=== PATIENT | male | born 1990 | race Asian ===

== ENCOUNTER 2017-10-11 02:01 | Emergency (ER) | payer OTHER ==
[2017-10-11] MEDS ORDERED: Ondansetron INJ* 2 MG/ML VIAL IV ONE (02:14)
[2017-10-11] MEDS ORDERED: Ketorolac INJ* 30 MG/ML 1 ML VIAL IV PUSH ONE (02:14)
[2017-10-11] MEDS ORDERED: NS 0.9% 1000 ML* 1,000 ML IV ONE (02:22)
[2017-10-11 03:46] LABS: ABS Basophils 0 10^3/ul (0-0.2); ABS Eosinophils 0 10^3/ul (0-0.6); ABS Lymphocytes 0.4 10^3/ul (1.0-4.8); ABS Monocytes 0.6 10^3/ul (0-0.8); ABS Neutrophils 7.5 10^3/ul (1.5-7.7); ABS Nucleated RBC 0 10^3/ul; Eosinophil % 0.1 % (0-6); Hematocrit 49 % (42-52); Hemoglobin 16.6 g/dl (14.0-18.0); Lymphocyte % 5.2 % (25-47); Mean Corpuscular HGB Conc 34 g/dl (31-36); Mean Corpuscular Hemoglobin 31 pg (27-31); Mean Corpuscular Volume 89 fL (80-94); Mean Platelet Volume 10 um3 (7.4-10.4); Nucleated Red Blood Cells % 0; Platelet Count 139 10^3/ul (150-450); Red Blood Count 5.43 10^6/ul (4.0-5.4); Red Cell Distribution Width 13 % (10.5-15); White Blood Count 8.6 10^3/ul (3.5-10.8)
[2017-10-11 03:59] LABS: EGFR Non-African American 99.4 (>60)
--- NOTE | 2017-10-11 04:28 | ED ---
Dwight Santana Jennifer, scribed for Go Geronimo MD on 10/11/17 at 0258 . Abdominal Pain/Male - HPI Summary HPI Summary: The patient is a 27 year old male who presents with central abdominal pain since yesterday morning. He reports he has had watery diarrhea four times today , but denies blood in the stool. He complains of nausea. 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 He denies previous abdominal surgeries, vomiting, fevers, chest pain, shortness of breath, sore throat, flu-like symptoms, urination problems, and upper respiratory problems. - History of Current Complaint Chief Complaint: EDAbdPain Stated Complaint: ABD PAIN Time Seen by Provider: 10/11/17 02:13 Hx Obtained From: Patient Onset/Duration: Sudden Onset, Lasting Days - began yesterday morning, Still Present Timing: Constant Severity Initially: Moderate Severity Currently: Moderate Pain Intensity: 4 Pain Scale Used: 0-10 Numeric Location: Diffuse Radiates: No Aggravating Factor(s): Nothing Alleviating Factor(s): Nothing Associated Signs And Symptoms: Positive: Other - diarrhea, nausea. NEGATIVEL vomiting, fevers, chest pain, shortness of breath, sore throat, flu-like symptoms, urination problems, upper respiratory problems. - Allergies/Home Medications Allergies/Adverse Reactions: Allergies Allergy/AdvReac Type Severity Reaction Status Date / Time No Known Allergies Allergy Verified 12/11/15 08:06 PMH/Surg Hx/FS Hx/Imm Hx Endocrine/Hematology History: Denies: Hx Diabetes Cardiovascular History: Denies: Hx Hypertension GI History: Denies: Hx Crohn's Disease Infectious Disease History: No Infectious Disease History: Denies: Traveled Outside the [place] in Last 30 Days - Family History Known Family History: Positive: None Negative: Other - Chron's, Colitis - Social History Occupation: Student - Veterinary Student Alcohol Use: Occasionally Substance Use Type: Reports: None Smoking Status (MU): Never Smoked Tobacco Have You Smoked in the Last Year: No Review of Systems Negative: Fever, Other - Flu symptoms Negative: Sore Throat Negative: Chest Pain Negative: Shortness Of Breath, Other - Upper respiratory problems Positive: Abdominal Pain, Diarrhea, Nausea. Negative: Vomiting Genitourinary: Negative - Urination problems All Other Systems Reviewed And Are Negative: Yes Physical Exam - Summary Physical Exam Summary: Appearance: Well appearing, no pain distress Skin: warm, dry, reflects adequate perfusion Head/face: normal Eyes: EOMI, SURAJ ENT: normal Neck: supple, non-tender Respiratory: CTA, breath sounds present Cardiovascular: slight tachycardia. Regular rhythm. pulses symmetrical Abdomen: non-tender, soft Bowel: present Musculoskeletal: normal, strength/ROM intact Neuro: normal, sensory motor intact, A&Ox3 Triage Information Reviewed: Yes Vital Signs On Initial Exam: Initial Vitals Temp Pulse Resp BP Pulse Ox 100.3 F 110 16 114/68 97 10/11/17 02:08 10/11/17 02:08 10/11/17 02:08 10/11/17 02:08 10/11/17 02:08 Vital Signs Reviewed: Yes Diagnostics - Vital Signs Vital Signs Temp Pulse Resp BP Pulse Ox 10/11/17 02:08 100.3 F 110 16 114/68 97 - Laboratory Lab Results: Lab Results 10/11/17 10/11/17 10/11/17 Range/Units 03:00 03:00 03:00 WBC 8.6 (3.5-10.8) 10^3/ul RBC 5.43 H (4.0-5.4) 10^6/ul Hgb 16.6 (14.0-18.0) g/dl Hct 49 (42-52) % MCV 89 (80-94) fL MCH 31 (27-31) pg MCHC 34 (31-36) g/dl RDW 13 (10.5-15) % Plt Count 139 L (150-450) 10^3/ul MPV 10 (7.4-10.4) um3 Neut % (Auto) 87.5 H (38-83) % Lymph % (Auto) 5.2 L (25-47) % Navarro % (Auto) 7.0 (1-9) % Eos % (Auto) 0.1 (0-6) % Baso % (Auto) 0.2 (0-2) % Absolute Neuts (auto) 7.5 (1.5-7.7) 10^3/ul Absolute Lymphs (auto) 0.4 L (1.0-4.8) 10^3/ul Absolute Monos (auto) 0.6 (0-0.8) 10^3/ul Absolute Eos (auto) 0 (0-0.6) 10^3/ul Absolute Basos (auto) 0 (0-0.2) 10^3/ul Absolute Nucleated RBC 0 10^3/ul Nucleated RBC % 0 Sodium 135 (133-145) mmol/L Potassium 3.3 L (3.5-5.0) mmol/L Chloride 101 (101-111) mmol/L Carbon Dioxide 28 (22-32) mmol/L Anion Gap 6 (2-11) mmol/L BUN 9 (6-24) mg/dL Creatinine 0.92 (0.67-1.17) mg/dL Est GFR ( Amer) 127.9 (>60) Est GFR (Non-Af Amer) 99.4 (>60) BUN/Creatinine Ratio 9.8 (8-20) Glucose 99 (70-100) mg/dL Lactic Acid 0.7 (0.5-2.0) mmol/L Calcium 9.4 (8.6-10.3) mg/dL Total Bilirubin 0.50 (0.2-1.0) mg/dL AST 21 (13-39) U/L ALT 13 (7-52) U/L Alkaline Phosphatase 56 (34-104) U/L C-Reactive Protein 27.31 H (< 5.00) mg/L Total Protein 7.3 (6.4-8.9) g/dL Albumin 4.5 (3.2-5.2) g/dL Globulin 2.8 (2-4) g/dL Albumin/Globulin Ratio 1.6 (1-3) Lipase 38 (11.0-82.0) U/L Result Diagrams: 10/11/17 03:00 10/11/17 03:00 Lab Statement: Any lab studies that have been ordered have been reviewed, and results considered in the medical decision making process. Re-Evaluation - Re-Evaluation First Eval Re-Evaluation Time: 04:20 Change: Improved Comment: The patient is feeling better with IV fluids. 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 States originally that crytococcus was a possibly exposure -- later changed that to Cryptosporidium. Not able to give stool here. Abd soft and NT. Improved with tx here. No blood. Tx symptomatically. [facility]. - Diagnoses Differential Diagnosis/HQI/PQRI: Other - Likely viral vs bacterial enteritis. No food exposure known. No food insensitivities. Possible cryptosporidium. Provider Diagnoses: Enteritis, Diarrhea Discharge - Discharge Plan Condition: Good Disposition: HOME Prescriptions: Hyoscyamine Sulfate 0.125 mg PO Q4H PRN #20 tab.rapdis PRN Reason: cramping Ondansetron [Zofran Odt] 4 mg PO TID PRN #10 tab.rapdis PRN Reason: Nausea Patient Education Materials: Enteritis (ED) Referrals: [facility] [Provider Group] Additional Instructions: Drink plenty of fluids, gatorade g2 will help. Ibuprofen as needed. Return with signs of dehydration, vomiting, high fever, blood in stools, worse or other concerns. PeptoBismol for first 24hrs then Imodium may be taken after. The documentation as recorded by the Dwight kam Jennifer accurately reflects the service I personally performed and the decisions made by , Go Geronimo MD.
[2017-10-11 04:52] VITALS: BP 102/58
== END 2017-10-11 04:52 | disposition home or self-care (01) ==
LOC: ED 02:01
DX: K52.9 Noninfective gastroenteritis and colitis, unspecified (principal)
CPT/HCPCS: 36415; 80053; 83605; 83690; 85025; 86140; 87899; 96361; 96374; 96375; 99283; J1885; J2405